=== PATIENT | female | born 1980 | race African-American/Black ===

== ENCOUNTER → 2018-05-28 | Outpatient (CLI) | payer BC ==
--- NOTE | 2018-05-28 12:50 | RADIOLOGY REPORT (SQ) ---
EXAM DESCRIPTION: FINGERS RIGHT COMPLETED DATE/TIME: 05/28/2018 12:30 pm REASON FOR STUDY: NEOPLASM OF UNCERTAIN BEHAVIOR OF SKIN D48.5 NEOPLASM OF UNCERTAIN BEHAVIOR OF SK IN painful lump on the finger, no known injury COMPARISON: None. NUMBER OF VIEWS: Three views. TECHNIQUE: AP, lateral, and oblique images acquired of the right 3rd digit LIMITATIONS: None. FINDINGS: MINERALIZATION: Normal. BONES: There is smooth concave bony remodeling along the 3rd finger middle phalanx radial aspect barb cent to a faintly radiodense soft tissue mass. No adjacent fracture. No cortical breakthrough. Rem ainder of the bones of the 3rd finger intact SOFT TISSUES: 1.4 x 0.7 cm faintly radiopaque soft tissue mass radial aspect 3rd finger adjacent to t he middle phalanx with smooth bony remodeling. This could represent a cyst or mass along the flexor or extensor tendon sheath apparatus. MRI of the 3rd finger is recommended for followup without with contrast. OTHER: No other significant finding. IMPRESSION: 1.4 x 0.7 cm faintly radiopaque soft tissue mass, radial aspect 3rd finger. Adjacent sm ooth bony remodeling of the middle phalanx without bony fracture. This may represent at tumor or cys t along the flexion or or extensor tendon sheath or primary soft tissue mass. MRI of the right 3rd f spencer without and with contrast recommended for followup COMMENT: SITE OF TRAUMA/COMPLAINT MARKED/STAMP COMPLETED: Yes TECHNICAL DOCUMENTATION: JOB ID: [id number] [employer]- All Rights Reserved Reading location - IP/workstation name: [email or web address]
== END ==
LOC: OD 12:14
PROVIDERS: ATTEND Surgery Plastic and Reconstructive Surgery
DX: D48.5 Neoplasm of uncertain behavior of skin (principal)